=== PATIENT | male | born 2000 | race African-American/Black ===

== ENCOUNTER 2020-12-21 10:38 | Inpatient (IN) | payer MEDICAID ==
[~2020-12-21] VITALS: Ht 175.3 cm; Wt 67.6 kg
[2020-12-21] MEDS ORDERED: ONDANSETRON HCL 4MG/2ML INJ IV STA (12:50)
[2020-12-21] MEDS ORDERED: KETOROLAC 30MG/ML VIAL IV STA (12:50)
[2020-12-21] MEDS ORDERED: SODIUM CHLORIDE 0.9% 1,000 ML IV ONE (13:00)
[2020-12-21 13:52] LABS: BASOPHILS % 0.4 % (0.0-2.0); HEMATOCRIT. 41.2 % (42.0-52.0); LYMPHOCYTES % 9.5 % (20.0-50.0); MEAN CORPUSCULAR HEMOGLOBIN 30.7 pg (28.0-32.0); MEAN CORPUSCULAR VOLUME 90.3 fL (80.0-94.0); MEAN PLATELET VOLUME 8.9 fl (7.4-10.4); MONOCYTES % 8.7 % (2.0-8.0); NEUTROPHILS % 81.4 % (40.0-76.0); PLATELET 219 x1000/uL (130-400); RED BLOOD CELL COUNT 4.56 mill/uL (4.7-6.1)
[2020-12-21 13:58] LABS: CHLORIDE 100 mEq/L (98-107)
[2020-12-21 14:03] LABS: INR 1.1; PROTHROMBIN TIME 11.8 sec (9.6-11.0)
[2020-12-21 14:18] LABS: CLARITY URINE CLEAR (CLEAR); COLOR URINE DARK YELLOW (YELLOW); KETONES URINE TRACE (NEGATIVE); LEUKOCYTE ESTERASE URINE TRACE (NEGATIVE); NITRITE URINE NEGATIVE (NEGATIVE); OCCULT BLOOD URINE NEGATIVE (NEGATIVE); PROTEIN URINE 1+ (NEGATIVE); SPECIFIC GRAVITY URINE 1.037 (1.005-1.030)
[2020-12-21 14:52] LABS: *AMPHETAMINES SCREEN URINE NEGATIVE (NEGATIVE); *BARBITURATES SCREEN URINE NEGATIVE (NEGATIVE); *BENZODIAZEPINES SCREEN URINE NEGATIVE (NEGATIVE); *COCAINE SCREEN URINE NEGATIVE (NEGATIVE); METHADONE URINE SCREEN NEGATIVE (NEGATIVE); OPIATES URINE SCREEN NEGATIVE (NEGATIVE); PHENCYCLIDINE URINE SCREEN NEGATIVE (NEGATIVE)
[2020-12-21 14:54] LABS: CANNABINOID URINE SCREEN PRESUMTIVE POSITIVE (NEGATIVE)
[2020-12-21] MEDS ORDERED: IOHEXOL-350 100 ML BOTTLE ONE (17:14)
[2020-12-21] MEDS ORDERED: PIPERACILLIN/TAZOBACTAM 3.375GM/50ML PREMIX IV ONE (17:45)
[2020-12-21] MEDS ORDERED: PIPERACILLIN/TAZ 3.375G PREMIX 50 ML IV NR (18:00)
[2020-12-21] MEDS ORDERED: MORPHINE SULFATE 4 MG/ML CPJ (NOT FOR IM USE) IV ONE (18:00)
[2020-12-21] MEDS ORDERED: MORPHINE SULFATE 2 MG/ML CPJ (NOT FOR IM USE) IV PRN (21:15)
[2020-12-21] MEDS ORDERED: NEOSTIGMINE METHYLSULFATE 1MG/ML 10 ML VIAL ONE (21:38)
[2020-12-21] MEDS ORDERED: FENTANYL CITRATE/PF 50MCG/ML 2ML VIAL ONE (21:38)
[2020-12-21] MEDS ORDERED: ROCURONIUM BROMIDE 10MG/ML VIAL 5ML IV ONE (21:38)
[2020-12-21] MEDS ORDERED: METOCLOPRAMIDE HCL 10MG/2ML VIAL ONE (21:39)
[2020-12-21] MEDS ORDERED: SODIUM CHLORIDE 0.9% 10ML VIAL ONE (21:39)
[2020-12-21] MEDS ORDERED: MIDAZOLAM HCL 2 MG/2 ML VIAL ONE (21:39)
[2020-12-21] MEDS ORDERED: SUCCINYLCHOLINE CHLORIDE 200MG/10ML IV ONE (21:39)
[2020-12-21] MEDS ORDERED: PROPOFOL 200MG/20ML VIAL IV ONE (21:39)
[2020-12-21] MEDS ORDERED: GLYCOPYRROLATE 0.2 MG/ML 2ML VIAL ONE ×2 (21:39→22:56)
[2020-12-21] MEDS ORDERED: CEFAZOLIN SODIUM 1000MG/VIAL ONE (21:39)
[2020-12-21] MEDS ORDERED: SKIN ADHESIVE 0.7 GM EA TOP ONE (21:50)
[2020-12-21] MEDS ORDERED: BUPIVACAINE HCL 0.5% (5MG/ML) 50ML ONE (21:51)
[2020-12-21] MEDS ORDERED: ONDANSETRON HCL 4MG/2ML INJ ONE (22:08)
[2020-12-21] MEDS: HYDROMORPHONE HCL/PF 2MG/ML CPJ IV PRN ×4 (23:15→23:51)
[2020-12-22] VITALS (7 sets, daily range): BP systolic 115–129; BP diastolic 66–77
[2020-12-22] MEDS ORDERED: MORPHINE SULFATE 4 MG/ML CPJ (NOT FOR IM USE) IV NR
[2020-12-22] MEDS ORDERED: MORPHINE SULFATE 10 MG/ML CPJ ONE (00:03)
[2020-12-22] MEDS ORDERED: MORPHINE SULFATE 10 MG/ML CPJ IV NR (00:11)
[2020-12-22] MEDS: ONDANSETRON HCL 4MG/2ML INJ IV PRN (00:20)
[2020-12-22] MEDS: MORPHINE SULFATE 4 MG/ML CPJ (NOT FOR IM USE) IV PRN ×3 (02:18→22:24)
[2020-12-22] MEDS: DEXT 5%/0.45% NACL KCL 20MEQ/L 1,000 ML IV SCH ×2 (04:17→13:21)
[2020-12-22] MEDS: HYDROCODONE/ACETAMINOPHEN 5/325MG TABLET PO PRN (04:48)
[2020-12-22] MEDS ORDERED: PIPERACILLIN/TAZOBACTAM 3.375 G in DEXT 5% WATER 50 ML IV SCH (08:00)
[2020-12-22] MEDS: PIPERACILLIN/TAZOBACTAM 3.375 G in DEXT 5% WATER 100 ML IV SCH ×3 (08:43→20:42)
[2020-12-23] VITALS: BP 121/75
[2020-12-23] MEDS: HYDROCODONE/ACETAMINOPHEN 5/325MG TABLET PO PRN ×4 (00:42→20:43)
[2020-12-23] MEDS: DEXT 5%/0.45% NACL KCL 20MEQ/L 1,000 ML IV SCH ×3 (00:44→20:35)
[2020-12-23] MEDS: PIPERACILLIN/TAZOBACTAM 3.375 G in DEXT 5% WATER 100 ML IV SCH ×4 (02:57→20:35)
[2020-12-23 04:00] VITALS: BP 121/73
[2020-12-23] MEDS: ONDANSETRON HCL 4MG/2ML INJ IV PRN (05:18)
[2020-12-23 08:00] VITALS: BP 114/64
[2020-12-23 12:00] VITALS: BP 117/69
[2020-12-23 16:00] VITALS: BP 106/64
[2020-12-23 20:00] VITALS: BP 122/63
[2020-12-24] VITALS: BP 115/69
[2020-12-24] MEDS: HYDROCODONE/ACETAMINOPHEN 5/325MG TABLET PO PRN ×6 (00:53→21:17)
[2020-12-24] MEDS: PIPERACILLIN/TAZOBACTAM 3.375 G in DEXT 5% WATER 100 ML IV SCH ×4 (04:49→21:17)
[2020-12-24] MEDS: DEXT 5%/0.45% NACL KCL 20MEQ/L 1,000 ML IV SCH ×2 (06:00→16:39)
[2020-12-24 08:00] VITALS: BP 125/57
[2020-12-24 20:00] VITALS: BP 114/63
[2020-12-25] VITALS: BP 123/72
[2020-12-25] MEDS: DEXT 5%/0.45% NACL KCL 20MEQ/L 1,000 ML IV SCH ×3 (00:26→22:23)
[2020-12-25] MEDS: HYDROCODONE/ACETAMINOPHEN 5/325MG TABLET PO PRN ×6 (01:27→22:22)
[2020-12-25] MEDS: PIPERACILLIN/TAZOBACTAM 3.375 G in DEXT 5% WATER 100 ML IV SCH ×4 (01:31→22:23)
[2020-12-25 04:00] VITALS: BP 118/75
[2020-12-25 08:00] VITALS: BP 119/71
[2020-12-25 12:00] VITALS: BP 110/53
[2020-12-25 16:00] VITALS: BP 116/56
[2020-12-25 20:00] VITALS: BP 119/57
[2020-12-25] MEDS: ONDANSETRON HCL 4MG/2ML INJ IV PRN (22:23)
[2020-12-26] VITALS: BP 120/61
[2020-12-26] MEDS: PIPERACILLIN/TAZOBACTAM 3.375 G in DEXT 5% WATER 100 ML IV SCH ×4 (02:34→20:42)
[2020-12-26] MEDS: HYDROCODONE/ACETAMINOPHEN 5/325MG TABLET PO PRN ×5 (02:35→18:37)
[2020-12-26 04:00] VITALS: BP 112/65
[2020-12-26] MEDS: DEXT 5%/0.45% NACL KCL 20MEQ/L 1,000 ML IV SCH ×2 (06:41→14:42)
[2020-12-26 08:00] VITALS: BP 126/74
[2020-12-26 12:00] VITALS: BP 109/67
[2020-12-26 16:00] VITALS: BP 143/79
[2020-12-26 20:00] VITALS: BP 110/65
[2020-12-26] MEDS ORDERED: HYDROCODONE/ACETAMINOPHEN 5/325MG TABLET PO PRN (21:30)
[2020-12-27] VITALS: BP 111/63
[2020-12-27] MEDS: DEXT 5%/0.45% NACL KCL 20MEQ/L 1,000 ML IV SCH (02:37)
[2020-12-27] MEDS: PIPERACILLIN/TAZOBACTAM 3.375 G in DEXT 5% WATER 100 ML IV SCH (02:37)
[2020-12-27 04:00] VITALS: BP 104/66
[2020-12-27] MEDS: HYDROCODONE/ACETAMINOPHEN 5/325MG TABLET PO PRN ×2 (06:27→10:39)
[2020-12-27 08:00] VITALS: BP 103/52
[2020-12-27 11:16] VITALS: BP 103/52
[2020-12-27 12:00] VITALS: BP 109/52
== END 2020-12-27 13:23 | disposition home or self-care (01) | DRG 710 ==
LOC: ER 11:13 → 6EST 18:29 → EDBEDREQTM 18:36 → EDBEDREQ 18:36 → ENRESERV 20:05
PROVIDERS: ADMIT Surgery; ATTEND Surgery
PROC: 0DTJ0ZZ Resection of Appendix, Open Approach (ICD-10-PCS; principal; 2020-12-21)
PROC: 0WJG4ZZ Inspection of Peritoneal Cavity, Percutaneous Endoscopic Approach (ICD-10-PCS; 2020-12-21)
DX: A41.9 Sepsis, unspecified organism (principal); K35.32 Acute appendicitis with perforation, localized peritonitis, and gangrene, without abscess; K56.7 Ileus, unspecified; K38.1 Appendicular concretions; Z53.31 Laparoscopic surgical procedure converted to open procedure; Z82.49 Family history of ischemic heart disease and other diseases of the circulatory system; Z20.822 Contact with and (suspected) exposure to COVID-19
CPT/HCPCS: 36415; 74018; 74177; 80053; 80305; 81003; 83605; 85025; 86140; 87426; 88304; 93005; 99285; J0330; J0690; J1170; J1885; J2250; J2270; J2405; J2543; J2704; J2710; J2765; J3010; J3490; J7030; J7060; Q9967

== ENCOUNTER 2021-01-03 15:00 | Inpatient (IN) | payer MEDICAID ==
[~2021-01-03] VITALS: Ht 180.3 cm; Wt 57.6 kg
[2021-01-03 15:00] VITALS: BP 110/66
[2021-01-03] MEDS ORDERED: DIATR MEGLU/DIATRIZOATE SOLN 30ML PO SCH (15:30)
[2021-01-03] MEDS: HYDROCODONE/ACETAMINOPHEN 5/325MG TABLET PO PRN ×2 (17:50→21:53)
[2021-01-03] MEDS: DEXT 5%/0.45% NACL KCL 20MEQ/L 1,000 ML IV SCH ×2 (18:16→23:40)
[2021-01-03 20:00] VITALS: BP 105/55
[2021-01-04] VITALS (22 sets, daily range): BP systolic 99–148; BP diastolic 4–78
[2021-01-04] MEDS: HYDROCODONE/ACETAMINOPHEN 5/325MG TABLET PO PRN ×5 (02:06→20:26)
[2021-01-04 06:50] LABS: BASOPHILS % 0.2 % (0.0-2.0); EOSINOPHILS % 0.1 % (0.0-5.0); HEMATOCRIT. 35.1 % (42.0-52.0); HEMOGLOBIN. 11.7 g/dL (14.0-18.0); LYMPHOCYTES % 9.9 % (20.0-50.0); MEAN CORPUSCULAR HEMOGLOBIN 30.3 pg (28.0-32.0); MEAN CORPUSCULAR VOLUME 90.7 fL (80.0-94.0); MEAN PLATELET VOLUME 7.8 fl (7.4-10.4); NEUTROPHILS % 82.8 % (40.0-76.0); PLATELET 614 x1000/uL (130-400); RED BLOOD CELL COUNT 3.87 mill/uL (4.7-6.1); RED CELL DISTRIBUTION WIDTH 13.3 % (11.6-14.6)
[2021-01-04 07:20] LABS: CHLORIDE 101 mEq/L (98-107)
[2021-01-04] MEDS ORDERED: DIATR MEGLU/DIATRIZOATE SOLN 30ML PO NR (08:45)
[2021-01-04] MEDS: DEXT 5%/0.45% NACL KCL 20MEQ/L 1,000 ML IV SCH ×3 (09:14→23:36)
[2021-01-04] MEDS ORDERED: LIDOCAINE HCL 1% 20ML VIAL (Pyxis) INJ ONE (12:41)
[2021-01-04] MEDS ORDERED: SODIUM BICARBONATE 4% (2.4MEQ) 5ML VIAL IV ONE (12:41)
[2021-01-04] MEDS ORDERED: FENTANYL CITRATE/PF 50MCG/ML 2ML VIAL ONE (12:41)
[2021-01-04 13:53] LABS: INR 1.3; PROTHROMBIN TIME 13.3 sec (9.6-11.0)
[2021-01-04] MEDS ORDERED: FENTANYL CITRATE/PF 50MCG/ML 2ML VIAL IV ONE (15:00)
[2021-01-04] MEDS ORDERED: IOHEXOL-300 100 ML BOTTLE ONE (15:10)
[2021-01-04] MEDS: CEFAZOLIN 2,000 MG in DEXT 5% WATER 100 ML IV SCH (23:36)
[2021-01-04] MEDS: METRONIDAZOLE 500 MG PREMIX 100 ML IV SCH (23:36)
[2021-01-05] VITALS (7 sets, daily range): BP systolic 98–104; BP diastolic 52–68
[2021-01-05] MEDS: ACETAMINOPHEN 325MG TABLET PO PRN ×2 (00:10→08:19)
[2021-01-05] MEDS: HYDROCODONE/ACETAMINOPHEN 5/325MG TABLET PO PRN ×4 (03:17→19:57)
[2021-01-05] MEDS: METRONIDAZOLE 500 MG PREMIX 100 ML IV SCH ×3 (06:39→18:42)
[2021-01-05] MEDS: CEFAZOLIN 2,000 MG in DEXT 5% WATER 100 ML IV SCH ×3 (06:39→22:33)
[2021-01-05] MEDS: DEXT 5%/0.45% NACL KCL 20MEQ/L 1,000 ML IV SCH ×3 (06:40→22:33)
[2021-01-05] MEDS ORDERED: ONDANSETRON HCL 4MG/2ML INJ IV PRN (12:15)
[2021-01-05 13:55] LABS: CHLORIDE 97 mEq/L (98-107)
[2021-01-05 13:56] LABS: HEMATOCRIT. 36.7 % (42.0-52.0); HEMOGLOBIN. 12.6 g/dL (14.0-18.0); MEAN CORPUSCULAR HEMOGLOBIN 31.5 pg (28.0-32.0); MEAN CORPUSCULAR VOLUME 91.5 fL (80.0-94.0); MEAN PLATELET VOLUME 7.7 fl (7.4-10.4); PLATELET 569 x1000/uL (130-400); RED BLOOD CELL COUNT 4.01 mill/uL (4.7-6.1); RED CELL DISTRIBUTION WIDTH 13.2 % (11.6-14.6)
[2021-01-05 20:12] LABS: PLATELET ESTIMATE INCREASED
[2021-01-06] VITALS: BP 107/57
[2021-01-06] MEDS: METRONIDAZOLE 500 MG PREMIX 100 ML IV SCH ×4 (00:08→18:42)
[2021-01-06] MEDS: HYDROCODONE/ACETAMINOPHEN 5/325MG TABLET PO PRN ×5 (00:08→20:55)
[2021-01-06 04:00] VITALS: BP 90/60
[2021-01-06] MEDS: CEFAZOLIN 2,000 MG in DEXT 5% WATER 100 ML IV SCH ×2 (06:19→16:20)
[2021-01-06] MEDS: DEXT 5%/0.45% NACL KCL 20MEQ/L 1,000 ML IV SCH ×2 (06:19→16:20)
[2021-01-06 08:00] VITALS: BP 102/62
[2021-01-06 12:00] VITALS: BP 95/47
[2021-01-06 13:17] LABS: HEMOGLOBIN. 11.3 g/dL (14.0-18.0); MEAN CORPUSCULAR HEMOGLOBIN 31.1 pg (28.0-32.0); MEAN CORPUSCULAR VOLUME 90.4 fL (80.0-94.0); MEAN PLATELET VOLUME 7.5 fl (7.4-10.4); PLATELET 534 x1000/uL (130-400); RED BLOOD CELL COUNT 3.65 mill/uL (4.7-6.1); RED CELL DISTRIBUTION WIDTH 13.4 % (11.6-14.6)
[2021-01-06 13:23] LABS: CHLORIDE 98 mEq/L (98-107)
[2021-01-06 14:14] LABS: PLATELET ESTIMATE INCREASED
[2021-01-06 16:00] VITALS: BP 92/60
[2021-01-06 20:00] VITALS: BP 95/60
[2021-01-07] VITALS: BP 101/60
[2021-01-07] MEDS: DEXT 5%/0.45% NACL KCL 20MEQ/L 1,000 ML IV SCH ×3 (00:06→23:31)
[2021-01-07] MEDS: CEFAZOLIN 2,000 MG in DEXT 5% WATER 100 ML IV SCH ×3 (00:06→14:06)
[2021-01-07] MEDS: METRONIDAZOLE 500 MG PREMIX 100 ML IV SCH ×4 (00:10→23:31)
[2021-01-07] MEDS: HYDROCODONE/ACETAMINOPHEN 5/325MG TABLET PO PRN ×4 (02:24→23:43)
[2021-01-07 04:00] VITALS: BP 95/62
[2021-01-07 07:11] LABS: BASOPHILS % 0.4 % (0.0-2.0); EOSINOPHILS % 0.2 % (0.0-5.0); HEMATOCRIT. 32.5 % (42.0-52.0); LYMPHOCYTES % 7.6 % (20.0-50.0); MEAN CORPUSCULAR HEMOGLOBIN 30.9 pg (28.0-32.0); MEAN CORPUSCULAR VOLUME 91.3 fL (80.0-94.0); MEAN PLATELET VOLUME 8.2 fl (7.4-10.4); MONOCYTES % 7.1 % (2.0-8.0); NEUTROPHILS % 84.7 % (40.0-76.0); PLATELET 502 x1000/uL (130-400); RED BLOOD CELL COUNT 3.56 mill/uL (4.7-6.1); RED CELL DISTRIBUTION WIDTH 13.3 % (11.6-14.6)
[2021-01-07] MEDS ORDERED: DIATR MEGLU/DIATRIZOATE SOLN 30ML PO SCH (07:15)
[2021-01-07 08:00] VITALS: BP 107/57
[2021-01-07] MEDS ORDERED: IOHEXOL-300 50 ML BOTTLE IV ONE (08:19)
[2021-01-07 16:00] VITALS: BP 106/59
[2021-01-07] MEDS: CEFTRIAXONE 1,000 MG in DEXTROSE 5% WATER 50 ML IV SCH (17:18)
[2021-01-07] MEDS: KETOROLAC 30MG/ML VIAL IV PRN (17:33)
[2021-01-07 20:00] VITALS: BP 98/53
[2021-01-08] VITALS (19 sets, daily range): BP systolic 88–122; BP diastolic 49–73
[2021-01-08] MEDS: METRONIDAZOLE 500 MG PREMIX 100 ML IV SCH ×4 (06:02→23:55)
[2021-01-08] MEDS: DEXT 5%/0.45% NACL KCL 20MEQ/L 1,000 ML IV SCH ×3 (06:02→23:55)
[2021-01-08] MEDS: KETOROLAC 30MG/ML VIAL IV PRN ×2 (06:35→23:02)
[2021-01-08] MEDS ORDERED: FENTANYL CITRATE/PF 50MCG/ML 2ML VIAL ONE (09:36)
[2021-01-08] MEDS ORDERED: SODIUM BICARBONATE 4% (2.4MEQ) 5ML VIAL IV ONE (09:36)
[2021-01-08] MEDS ORDERED: LIDOCAINE HCL 1% 20ML VIAL (Pyxis) INJ ONE (09:37)
[2021-01-08] MEDS ORDERED: FENTANYL CITRATE/PF 50MCG/ML 2ML VIAL IV ONE (10:00)
[2021-01-08] MEDS: MORPHINE SULFATE 2 MG/ML CPJ (NOT FOR IM USE) IV PRN ×4 (12:42→23:55)
[2021-01-08] MEDS: CEFTRIAXONE 1,000 MG in DEXTROSE 5% WATER 50 ML IV SCH (16:33)
[2021-01-09 04:00] VITALS: BP 101/52
[2021-01-09] MEDS: MORPHINE SULFATE 2 MG/ML CPJ (NOT FOR IM USE) IV PRN ×5 (04:35→20:45)
[2021-01-09] MEDS: METRONIDAZOLE 500 MG PREMIX 100 ML IV SCH ×3 (06:41→17:48)
[2021-01-09] MEDS: DEXT 5%/0.45% NACL KCL 20MEQ/L 1,000 ML IV SCH ×2 (06:55→14:12)
[2021-01-09 08:00] VITALS: BP 111/59
[2021-01-09 12:00] VITALS: BP 107/63
[2021-01-09 12:23] LABS: HEMATOCRIT. 34.4 % (42.0-52.0); HEMOGLOBIN. 11.7 g/dL (14.0-18.0); MEAN CORPUSCULAR HEMOGLOBIN 31.1 pg (28.0-32.0); MEAN CORPUSCULAR VOLUME 91.1 fL (80.0-94.0); MEAN PLATELET VOLUME 7.2 fl (7.4-10.4); PLATELET 662 x1000/uL (130-400); RED BLOOD CELL COUNT 3.77 mill/uL (4.7-6.1); RED CELL DISTRIBUTION WIDTH 13.6 % (11.6-14.6)
[2021-01-09] MEDS: ACETAMINOPHEN 325MG TABLET PO PRN ×2 (12:24→20:15)
[2021-01-09 16:00] VITALS: BP 100/57
[2021-01-09] MEDS: CEFTRIAXONE 1,000 MG in DEXTROSE 5% WATER 50 ML IV SCH (17:42)
[2021-01-09 18:34] LABS: PLATELET ESTIMATE INCREASED
[2021-01-09 20:00] VITALS: BP 104/58
[2021-01-10] VITALS: BP 107/63
[2021-01-10] MEDS: DEXT 5%/0.45% NACL KCL 20MEQ/L 1,000 ML IV SCH ×3 (00:15→13:18)
[2021-01-10] MEDS: MORPHINE SULFATE 2 MG/ML CPJ (NOT FOR IM USE) IV PRN ×6 (00:20→21:46)
[2021-01-10] MEDS: ACETAMINOPHEN 325MG TABLET PO PRN ×2 (02:52→21:45)
[2021-01-10 04:00] VITALS: BP 104/62
[2021-01-10 08:00] VITALS: BP 112/64
[2021-01-10] MEDS: PIPERACILLIN/TAZOBACTAM 3.375 G in DEXT 5% WATER 100 ML IV SCH ×2 (16:11→21:45)
[2021-01-10 20:00] VITALS: BP 105/56
[2021-01-11] VITALS: BP 107/58
[2021-01-11] MEDS: DEXT 5%/0.45% NACL KCL 20MEQ/L 1,000 ML IV SCH ×4 (00:51→23:26)
[2021-01-11] MEDS: MORPHINE SULFATE 2 MG/ML CPJ (NOT FOR IM USE) IV PRN ×7 (00:52→23:26)
[2021-01-11 04:00] VITALS: BP 118/58
[2021-01-11] MEDS: PIPERACILLIN/TAZOBACTAM 3.375 G in DEXT 5% WATER 100 ML IV SCH ×4 (04:33→23:26)
[2021-01-11 06:56] LABS: HEMATOCRIT. 36.6 % (42.0-52.0); HEMOGLOBIN. 12.6 g/dL (14.0-18.0); MEAN CORPUSCULAR HEMOGLOBIN 31.4 pg (28.0-32.0); MEAN CORPUSCULAR VOLUME 90.8 fL (80.0-94.0); MEAN PLATELET VOLUME 7.5 fl (7.4-10.4); PLATELET 625 x1000/uL (130-400); RED BLOOD CELL COUNT 4.02 mill/uL (4.7-6.1); RED CELL DISTRIBUTION WIDTH 13.2 % (11.6-14.6)
[2021-01-11 07:35] LABS: CHLORIDE 102 mEq/L (98-107)
[2021-01-11 08:00] VITALS: BP 102/50
[2021-01-11 12:00] VITALS: BP 100/48
[2021-01-11] MEDS ORDERED: IOHEXOL-300 50 ML BOTTLE IV ONE (13:41)
[2021-01-11 16:00] VITALS: BP 100/53
[2021-01-11 16:29] LABS: PLATELET ESTIMATE INCREASED
[2021-01-11 20:00] VITALS: BP 97/53
[2021-01-12] VITALS: BP 110/66
[2021-01-12] MEDS: ZOLPIDEM TARTRATE 5MG TABLET PO PRN (02:33)
[2021-01-12 04:00] VITALS: BP 109/59
[2021-01-12] MEDS: PIPERACILLIN/TAZOBACTAM 3.375 G in DEXT 5% WATER 100 ML IV SCH ×4 (06:27→23:01)
[2021-01-12] MEDS: MORPHINE SULFATE 2 MG/ML CPJ (NOT FOR IM USE) IV PRN ×3 (06:27→23:02)
[2021-01-12 08:00] VITALS: BP 107/58
[2021-01-12] MEDS: DEXT 5%/0.45% NACL KCL 20MEQ/L 1,000 ML IV SCH ×3 (09:02→23:04)
[2021-01-12 12:00] VITALS: BP 118/58
[2021-01-12 16:00] VITALS: BP 118/62
[2021-01-12 20:00] VITALS: BP 108/58
[2021-01-13 00:24] VITALS: BP 118/53
[2021-01-13] MEDS: ZOLPIDEM TARTRATE 5MG TABLET PO PRN (02:46)
[2021-01-13 04:00] VITALS: BP 110/67
[2021-01-13] MEDS: PIPERACILLIN/TAZOBACTAM 3.375 G in DEXT 5% WATER 100 ML IV SCH ×2 (07:00→09:08)
[2021-01-13] MEDS: DEXT 5%/0.45% NACL KCL 20MEQ/L 1,000 ML IV SCH (07:02)
[2021-01-13 08:00] VITALS: BP 105/57
[2021-01-13] MEDS: MORPHINE SULFATE 2 MG/ML CPJ (NOT FOR IM USE) IV PRN (09:19)
[2021-01-13 13:00] VITALS: BP 108/57
[2021-01-13 13:22] VITALS: BP 105/57
== END 2021-01-13 15:11 | disposition home or self-care (01) | DRG 721 ==
LOC: 6EST 15:00
PROVIDERS: ADMIT Surgery; ATTEND Surgery
PROC: 0W9G30Z Drainage of Peritoneal Cavity with Drainage Device, Percutaneous Approach (ICD-10-PCS; principal; 2021-01-04)
PROC: 0K9K30Z Drainage of Right Abdomen Muscle with Drainage Device, Percutaneous Approach (ICD-10-PCS; 2021-01-08)
DX: T81.43XA Infection following a procedure, organ and space surgical site, initial encounter (principal); K65.1 Peritoneal abscess; E87.1 Hypo-osmolality and hyponatremia; L02.211 Cutaneous abscess of abdominal wall; B96.6 Bacteroides fragilis [B. fragilis] as the cause of diseases classified elsewhere; Z20.822 Contact with and (suspected) exposure to COVID-19; Y83.8 Other surgical procedures as the cause of abnormal reaction of the patient, or of later complication, without mention of misadventure at the time of the procedure; B96.20 Unspecified Escherichia coli [E. coli] as the cause of diseases classified elsewhere; D72.829 Elevated white blood cell count, unspecified; Z90.49 Acquired absence of other specified parts of digestive tract; Y92.89 Other specified places as the place of occurrence of the external cause
CPT/HCPCS: 36415; 74176; 74177; 77012; 80048; 85025; 87070; 87075; 87077; 87186; 87426; 97116; 97162; 97530; 99152; 99153; C1729; C1769; J0690; J0696; J1885; J2270; J2543; J3010; J3490; J7060; L8514; Q9963; Q9967; G0500

== ENCOUNTER 2022-04-05 00:29 | Emergency (ER) | payer MEDICAID ==
[~2022-04-05] VITALS: Ht 180.3 cm; Wt 71.0 kg
[2022-04-05] MEDS ORDERED: BACITRACIN ZINC OINT UDPKT TOP ONE (02:00)
[2022-04-05 03:09] VITALS: BP 108/88
== END 2022-04-06 03:09 ==
LOC: ER 00:29
DX: S00.81XA Abrasion of other part of head, initial encounter (principal); Y35.893A Legal intervention involving other specified means, suspect injured, initial encounter; Y93.89 Activity, other specified; Y92.488 Other paved roadways as the place of occurrence of the external cause
CPT/HCPCS: 99283